=== PATIENT | male | born 1965 | race Caucasian/White ===

== ENCOUNTER 2025-02-11 08:21 | Outpatient (CLI) | payer OTHER, SELFPAY ==
--- NOTE | ~2025-02-11 | US_ITS ---
Mid medial right lower leg ULTRASOUND (Doppler ultrasound interrogation techniques used as needed for this exam.) Ordering provider: Katie Bertrand History: . Localized swelling, mass and lump, R lower limb . Comparison: None. FINDINGS/impression: Heterogenous echogenicity area is noted with minimal fluid measuring 2.8 x 0.7 x 1.6 cm. This may represent an area of infection or hematoma. Clinical correlation and further evalua tion advised. Reviewed, dictated and finalized at location A.
== END 2025-02-11 08:22 | disposition home or self-care (01) ==
DX: R22.41 Localized swelling, mass and lump, right lower limb (principal)
CPT/HCPCS: 76882